=== PATIENT | male | born 1955 | race Caucasian/White ===

== ENCOUNTER → 2016-07-19 | Outpatient (CLI) | payer BC ==
[2016-07-19 07:46] LABS: HEMATOCRIT 42.8 % (42.0-52.0); HEMOGLOBIN 14.8 g/dL (14.0-18.0); MEAN CORPUSCULAR HEMOGLOBIN 33.8 PG (27-31); MEAN CORPUSCULAR HGB CONC 34.6 g/dL (33-37); MEAN CORPUSCULAR VOLUME 97.7 FL (80-90); MEAN PLATELET VOLUME 8.2 FL (7.4-12.2); RED BLOOD COUNT 4.38 10^6/uL (4.70-6.10)
[2016-07-19 08:22] LABS: BILIRUBIN,URINE NEGATIVE (NEG); COLOR,URINE YELLOW; GLUCOSE, URINE (UA) NEGATIVE (NEG); NITRATE,URINE NEGATIVE (NEG); OCCULT BLOOD,URINE NEGATIVE (NEG); PH,URINE 8.5 (5.0-8.5); PROTEIN,URINE NEGATIVE (NEG); UROBILINOGEN,URINE 0.2 mg/dL (0.2)
[2016-07-19 08:24] LABS: BLOOD UREA NITROGEN 9 mg/dL (7-22); BUN/CREATININE RATIO 11.25 (6-20); CHOL/HDL RATIO 2.96 RATIO (0-4.0); EST GLOMERULAR FILTRATION > 60 (>60 ml/min/1.73m(2)); HDL CHOLESTEROL 55 mg/dL (40-150); SERUM ALBUMIN 4.1 g/dL (3.5-4.8); SERUM CHOLESTEROL 163 mg/dL (120-200)
[2016-07-19 08:30] LABS: CLARITY,URINE CLEAR (CLEAR)
[2016-07-19 08:31] LABS: RBC,URINE RARE /hpf; URINE SAMPLE TYPE VOIDED SPECIMEN; WBC,URINE 0
[2016-07-19 08:53] LABS: BAND NEUTROPHILS % 1 % (0-10); EOSINOPHILS % (MANUAL) 3 % (0-8); LYMPHOCYTES % (MANUAL) 30 % (10-50); MONOCYTES % (MANUAL) 4 % (0-12); NEUTROPHILS % (MANUAL) 62 % (50-80); PLATELET MORPHOLOGY COMMENT NORMAL MORPHOLOGY (NORM); RBC MORPHOLOGY COMMENT NORMAL MORPHOLOGY (NORM); WBC MORPHOLOGY COMMENT NORMAL MORPHOLOGY (NORM)
== END ==
LOC: LAB 07:30
PROVIDERS: ATTEND Family Medicine
DX: K21.9 Gastro-esophageal reflux disease without esophagitis (principal); I10 Essential (primary) hypertension; Z95.5 Presence of coronary angioplasty implant and graft; F17.201 Nicotine dependence, unspecified, in remission
CPT/HCPCS: 36415; 80053; 80061; 81001; 85007

== ENCOUNTER 2016-08-02 07:32 | Day surgery (SDC) | payer BC ==
[~2016-08-02 07:32] MED LIST: LIDOCAINE 2% VISCOUS(20 MG/1 ML) - 15 ML UD CUP PO ONE; LIDOCAINE W/ SODIUM BICARB 0.5 ML SYR ONE; Lactated Ringers 1,000 ML PRIMARY IV ONE
[2016-08-02 07:49] VITALS: RESP 16
--- NOTE | 2016-08-02 08:36 | GEN.OPNOTE ---
EGD Operative Note Surgery Date: 08/02/16 Preoperative Diagnosis: Gastroesophageal reflux disease Postoperative Diagnosis: Gastritis Procedure: Esophagogastroduodenoscopy with biopsy Surgeon: William Begum MD Anesthesia Provider: Keaton Sterling CRNA Anesthesia Type: MAC Indications: Patient having guests soft reflux disease abdominal pain Findings: Esophagus: Lives video EGD scope inserted in posterior pharynx. CAD into the upper esophagus under direct visualization. Esophagus appeared be completely normal. No masses tumors or ulcers. No strictures noted GE Junction : GE junction at 42 cm from incisors Fundus : Scope right flexor on itself revealing a normal fundus Body : Body the stomach is within normal limits normal no ulcers, tumors, or masses Prepyloric : There is evidence of acute inflammatory condition of the prepyloric area. Biopsies taken for CLOtest Small Intestine : First and second portion of duodenum within normal limits A lubricated flexible upper endoscope was inserted and passed through the esophagus and stomach into the duodenum.
[2016-08-02 08:54] VITALS: TEMP 97.2
== END 2016-08-02 08:40 | disposition home or self-care (01) ==
LOC: SDSC 07:32
PROVIDERS: ATTEND Surgery
DX: K29.70 Gastritis, unspecified, without bleeding (principal); K21.9 Gastro-esophageal reflux disease without esophagitis
CPT/HCPCS: 43239; 87339; J2704; J7120